=== PATIENT | female | born 1980 | race Two or more races ===

== ENCOUNTER 2017-08-31 06:32 | Outpatient (CLI) | payer OTHER ==
[~2017-08-31 06:32] MED LIST: ALLEGRA ALLERG180 MG PO; B12 5,000 MCG1 EACH SL; CALCIUM CARBON500 MG PO; CYTOMEL25 MCG PO; LASIX40 MG PO; MEDROL4 MG PO; NABUMETONE500 MG PO; NIFE60TA3 PO; OSTERA TABLET1 EACH PO; PERCOCET 5/3251 TAB PO; PROCARDIA90 MG/BLIS PO; SYNTHROID150 MCG PO; TORADOL10 MG PO; TYLENOL325 MG PO; VOLTAREM 50 MG PO; ZITHROMAX200 MG PO; [UNRECOGNIZED DRUG - CODE] PO
== END 2017-08-31 06:42 | disposition home or self-care (01) ==
LOC: LAB 06:32
DX: C73 Malignant neoplasm of thyroid gland (principal); E89.0 Postprocedural hypothyroidism

== ENCOUNTER 2017-09-28 14:25 | Emergency (ER) | payer OTHER ==
[~2017-09-28] VITALS: Ht 167.6 cm; Wt 113.4 kg
== END 2017-09-28 20:51 | disposition home or self-care (01) ==
LOC: ER 14:25
DX: J45.998 Other asthma (principal)

== ENCOUNTER 2017-11-27 07:19 | Outpatient (CLI) | payer OTHER | END 2017-11-27 07:54 | disposition home or self-care (01) | LOC: LAB 07:19 | DX: D64.9 Anemia, unspecified (principal); E11.9 Type 2 diabetes mellitus without complications; E78.2 Mixed hyperlipidemia; I10 Essential (primary) hypertension; E03.8 Other specified hypothyroidism ==

== ENCOUNTER → 2017-11-27 | Outpatient (CLI) | payer OTHER | END | disposition home or self-care (01) | LOC: TOM 08:45 | DX: R91.8 Other nonspecific abnormal finding of lung field (principal); Z85.850 Personal history of malignant neoplasm of thyroid ==

== ENCOUNTER 2017-12-13 07:42 | Emergency (ER) | payer OTHER ==
[~2017-12-13] VITALS: Ht 167.6 cm; Wt 105.7 kg
== END 2017-12-13 14:20 | disposition home or self-care (01) ==
LOC: ER 07:42
DX: J04.10 Acute tracheitis without obstruction (principal)

== ENCOUNTER → 2018-04-28 06:24 | Outpatient (CLI) | payer OTHER | END | disposition home or self-care (01) | LOC: LAB 06:24 | DX: C73 Malignant neoplasm of thyroid gland (principal); E89.0 Postprocedural hypothyroidism ==

== ENCOUNTER 2018-09-10 06:36 | Outpatient (CLI) | payer OTHER | END 2018-09-10 06:45 | disposition home or self-care (01) | LOC: LAB 06:36 | DX: C73 Malignant neoplasm of thyroid gland (principal); E89.0 Postprocedural hypothyroidism ==

== ENCOUNTER 2019-02-10 07:24 | Outpatient (CLI) | payer OTHER | END 2019-02-12 08:52 | disposition home or self-care (01) | LOC: TOM 07:24 | DX: C73 Malignant neoplasm of thyroid gland (principal) ==

== ENCOUNTER 2019-02-17 15:30 | Emergency (ER) | payer OTHER ==
[~2019-02-17] VITALS: Ht 165.1 cm; Wt 117.9 kg
[2019-02-17] MEDS ORDERED: KETO10TA2 PO (17:52)
[2019-02-17] MEDS ORDERED: ORPHENADRINE C100 MG PO (17:52)
[2019-02-17] MEDS ORDERED: FLONASE ALLERG9.9 ML NASAL (17:52)
[2019-02-17] MEDS ORDERED: CYCLOBENZAPRINE10 MG PO (17:52)
== END 2019-02-17 19:04 | disposition home or self-care (01) ==
LOC: ER 15:30
DX: M62.830 Muscle spasm of back (principal)

== ENCOUNTER 2019-03-02 07:02 | Outpatient (CLI) | payer OTHER ==
[~2019-03-02 07:02] MED LIST changes: +CYCLOBENZAPRINE10 MG PO; +FLONASE ALLERG9.9 ML NASAL; +KETO10TA2 PO; +ORPHENADRINE C100 MG PO
== END 2019-03-02 07:21 | disposition home or self-care (01) ==
LOC: LAB 07:02
DX: D64.89 Other specified anemias (principal); E11.9 Type 2 diabetes mellitus without complications; E78.2 Mixed hyperlipidemia; I10 Essential (primary) hypertension; E03.8 Other specified hypothyroidism

== ENCOUNTER 2019-05-09 06:43 | Outpatient (CLI) | payer OTHER | END 2019-05-09 15:00 | disposition home or self-care (01) | LOC: LAB 06:43 | DX: C73 Malignant neoplasm of thyroid gland (principal); E89.0 Postprocedural hypothyroidism ==

== ENCOUNTER 2019-06-01 07:16 | Outpatient (CLI) | payer OTHER ==
[~2019-06-01] VITALS: Ht 152.4 cm; Wt 120.2 kg
== END 2019-06-01 08:25 | disposition home or self-care (01) ==
LOC: OFIC 805 07:16
DX: C73 Malignant neoplasm of thyroid gland (principal); L30.8 Other specified dermatitis; J31.0 Chronic rhinitis; R21 Rash and other nonspecific skin eruption

== ENCOUNTER 2019-10-03 06:40 | Outpatient (CLI) | payer OTHER | END 2019-10-03 07:13 | disposition home or self-care (01) | LOC: LAB 06:40 | DX: D64.89 Other specified anemias (principal); E11.9 Type 2 diabetes mellitus without complications; E78.2 Mixed hyperlipidemia; E03.8 Other specified hypothyroidism; I10 Essential (primary) hypertension ==

== ENCOUNTER 2019-11-22 06:47 | Outpatient (CLI) | payer OTHER | END 2019-11-22 15:00 | disposition home or self-care (01) | LOC: LAB 06:47 | DX: C73 Malignant neoplasm of thyroid gland (principal); E89.0 Postprocedural hypothyroidism ==

== ENCOUNTER 2019-11-22 07:21 | Emergency (ER) | payer OTHER ==
[~2019-11-22] VITALS: Ht 167.6 cm; Wt 119.3 kg
== END 2019-11-22 12:10 | disposition home or self-care (01) ==
LOC: ER 07:21
DX: J45.998 Other asthma (principal); H66.92 Otitis media, unspecified, left ear

== ENCOUNTER 2020-01-16 06:14 | Outpatient (CLI) | payer OTHER | END 2020-01-16 06:23 | disposition home or self-care (01) | LOC: LAB 06:14 | PROVIDERS: ATTEND Internal Medicine Sports Medicine | DX: C73 Malignant neoplasm of thyroid gland (principal); E89.0 Postprocedural hypothyroidism ==

== ENCOUNTER 2020-01-16 07:13 | Outpatient (CLI) | payer OTHER | END 2020-01-16 07:25 | disposition home or self-care (01) | LOC: TOM 07:13 | PROVIDERS: ATTEND Internal Medicine Sports Medicine | DX: C73 Malignant neoplasm of thyroid gland (principal) ==

== ENCOUNTER → 2020-05-04 06:24 | Outpatient (CLI) | payer OTHER | END | disposition home or self-care (01) | LOC: LAB 06:24 | PROVIDERS: ATTEND Internal Medicine Sports Medicine | DX: C73 Malignant neoplasm of thyroid gland (principal); E89.0 Postprocedural hypothyroidism ==

== ENCOUNTER 2020-10-05 06:40 | Outpatient (CLI) | payer OTHER | END 2020-10-05 06:48 | disposition home or self-care (01) | LOC: LAB 06:40 | PROVIDERS: ATTEND Internal Medicine Sports Medicine | DX: D64.89 Other specified anemias (principal); E11.9 Type 2 diabetes mellitus without complications; E78.2 Mixed hyperlipidemia; I10 Essential (primary) hypertension; E03.8 Other specified hypothyroidism ==

== ENCOUNTER → 2021-02-04 06:20 | Outpatient (CLI) | payer OTHER | END | disposition home or self-care (01) | LOC: LAB 06:20 | PROVIDERS: ATTEND Internal Medicine Sports Medicine | DX: C73 Malignant neoplasm of thyroid gland (principal); E89.0 Postprocedural hypothyroidism; D50.8 Other iron deficiency anemias; E55.9 Vitamin D deficiency, unspecified; D55.8 Other anemias due to enzyme disorders ==

== ENCOUNTER 2021-02-11 08:00 | Outpatient (CLI) | payer OTHER | END 2021-02-11 08:30 | disposition home or self-care (01) | LOC: PPH VACUNA 08:00 | DX: Z23 Encounter for immunization (principal) ==

== ENCOUNTER 2021-03-04 08:00 | Outpatient (CLI) | payer OTHER | END 2021-03-04 08:30 | disposition home or self-care (01) | LOC: PPH VACUNA 08:00 | DX: Z23 Encounter for immunization (principal) ==

== ENCOUNTER 2021-05-06 06:17 | Outpatient (CLI) | payer OTHER | END 2021-05-06 06:18 | disposition home or self-care (01) | LOC: LAB 06:17 | PROVIDERS: ATTEND Internal Medicine Sports Medicine | DX: D64.89 Other specified anemias (principal); E11.9 Type 2 diabetes mellitus without complications; E78.2 Mixed hyperlipidemia; I10 Essential (primary) hypertension; E03.8 Other specified hypothyroidism; E55.9 Vitamin D deficiency, unspecified ==

== ENCOUNTER 2021-06-12 06:36 | Outpatient (CLI) | payer OTHER | END 2021-06-12 08:27 | disposition home or self-care (01) | LOC: LAB 06:36 | DX: M94.0 Chondrocostal junction syndrome [Tietze] (principal); S76.911A Strain of unspecified muscles, fascia and tendons at thigh level, right thigh, initial encounter; R60.0 Localized edema ==

== ENCOUNTER 2021-09-10 08:00 | Outpatient (CLI) | payer OTHER | END 2021-09-10 08:30 | disposition home or self-care (01) | LOC: PPH VACUNA 08:00 | PROVIDERS: ATTEND Emergency Medicine Pediatric Emergency Medicine | DX: Z23 Encounter for immunization (principal) ==

== ENCOUNTER 2021-10-28 06:35 | Outpatient (CLI) | payer OTHER | END 2021-10-28 06:36 | disposition home or self-care (01) | LOC: LAB 06:35 | PROVIDERS: ATTEND Internal Medicine Sports Medicine | DX: D64.9 Anemia, unspecified (principal); E11.9 Type 2 diabetes mellitus without complications; E78.2 Mixed hyperlipidemia; I10 Essential (primary) hypertension; E03.8 Other specified hypothyroidism ==

== ENCOUNTER 2022-02-10 06:36 | Outpatient (CLI) | payer OTHER | END 2022-02-10 06:37 | disposition home or self-care (01) | LOC: LAB 06:36 | PROVIDERS: ATTEND Internal Medicine Sports Medicine | DX: C73 Malignant neoplasm of thyroid gland (principal); E89.0 Postprocedural hypothyroidism; E03.8 Other specified hypothyroidism; D50.8 Other iron deficiency anemias ==

== ENCOUNTER 2022-03-24 06:41 | Outpatient (CLI) | payer OTHER | END 2022-03-24 06:49 | disposition home or self-care (01) | LOC: LAB 06:41 | PROVIDERS: ATTEND Internal Medicine Sports Medicine | DX: D64.9 Anemia, unspecified (principal); E11.9 Type 2 diabetes mellitus without complications; E78.2 Mixed hyperlipidemia; I10 Essential (primary) hypertension; E03.8 Other specified hypothyroidism ==

== ENCOUNTER 2022-07-08 06:52 | Inpatient (IN) | payer OTHER ==
[~2022-07-08] VITALS: Ht 167.6 cm; Wt 124.3 kg
[2022-07-08] MEDS ORDERED: SYNTHROID175 MCG PO (07:14)
--- NOTE | 2022-07-08 07:15 | NUR ---
SE RECIBE PTE ALERTA Y ORIENTADA X3. PTE REFIERE TENER DOLOR ABDOMINAL EN LADO IZQ PERSISTENTE SE EVALUA S/V Y SE UBICA .
--- NOTE | 2022-07-08 08:27 | NUR ---
LATASHA Amado.WONG ORIENTA PTE SOBRE EL TRATAMIENTO ORDENADO POR LA GOVEA PTE ALERTA Y ORIENTADO POR 3 RN WONG, REALIZA MUESTRAS DE LABORATORIO Y NOTIFICA ESTUDIO DE CT, PTE SE MANTIENE EN OBSERVACION Y BAJO TRATAMIENTO.
== END 2022-07-10 16:34 | disposition home or self-care (01) | DRG 392 ==
LOC: ER 06:52 → SEC-K 19:19 → O/R 07-10 08:24 → SEC-K 07-10 08:35 → MEDI 07-10 10:34
PROVIDERS: ADMIT Internal Medicine; ATTEND Internal Medicine
PROC: BW21ZZZ Computerized Tomography (CT Scan) of Abdomen and Pelvis (ICD-10-PCS; principal; 2022-07-08)
DX: K57.32 Diverticulitis of large intestine without perforation or abscess without bleeding (principal); N39.0 Urinary tract infection, site not specified; Z20.822 Contact with and (suspected) exposure to COVID-19; E03.9 Hypothyroidism, unspecified; J45.998 Other asthma

== ENCOUNTER 2023-01-09 06:27 | Outpatient (CLI) | payer OTHER ==
[~2023-01-09 06:27] MED LIST changes: +SYNTHROID175 MCG PO
== END 2023-01-09 06:33 | disposition home or self-care (01) ==
LOC: LAB 06:27
PROVIDERS: ATTEND Internal Medicine Sports Medicine
DX: D64.9 Anemia, unspecified (principal); I10 Essential (primary) hypertension; E11.9 Type 2 diabetes mellitus without complications; E78.2 Mixed hyperlipidemia; E03.8 Other specified hypothyroidism

== ENCOUNTER 2023-01-29 06:08 | Outpatient (CLI) | payer OTHER | END 2023-01-29 06:10 | disposition home or self-care (01) | LOC: LAB 06:08 | PROVIDERS: ATTEND Internal Medicine Sports Medicine | DX: L93.0 Discoid lupus erythematosus (principal) ==

== ENCOUNTER 2023-04-14 06:53 | Outpatient (CLI) | payer OTHER | END 2023-04-14 06:54 | disposition home or self-care (01) | LOC: LAB 06:53 | PROVIDERS: ATTEND Internal Medicine Sports Medicine | DX: C73 Malignant neoplasm of thyroid gland (principal); E08.9 Diabetes mellitus due to underlying condition without complications ==

== ENCOUNTER → 2023-06-22 06:39 | Outpatient (CLI) | payer OTHER ==
[2023-06-22 08:29] LABS: CREATININE SERUM 0.65 mg/dL (0.55-1.02)
== END | disposition home or self-care (01) ==
LOC: LAB 06:39
PROVIDERS: ATTEND Otolaryngology
DX: I10 Essential (primary) hypertension (principal)

== ENCOUNTER → 2023-08-14 06:49 | Outpatient (CLI) | payer OTHER ==
[2023-08-14 07:41] LABS: HEMATOCRIT 34.1 % (36.0-45.00); HEMOGLOBIN 10.6 g/dL (12.0-15.00); MEAN CORPUSCULAR HEMOGLOBIN 20.5 pg (27.00-32.0); PLATELET COUNT 340 K/uL (150-450); RED BLOOD COUNT 5.16 M/uL (4.00-6.00)
[2023-08-14 08:01] LABS: PH,URINE 6.5 (5.0-8.0); URINE APPEARANCE Clear; URINE BILIRRUBIN Negative (NEGATIVE); URINE BLOOD Negative; URINE COLOR Yellow; URINE GLUCOSE Negative (NEGATIVE); URINE LEUKOCYTE Moderate; URINE NITRATE Negative; URINE PROTEIN Negative (NEGATIVE)
[2023-08-14 08:05] LABS: URINE BACTERIA 139.8 uL (0.0-1933); URINE EPITHELIAL CELLS 6.6 uL (0.0-38.8); URINE RBC 5.6 uL (0.0-20.8)
== END | disposition home or self-care (01) ==
LOC: LAB 06:49
PROVIDERS: ATTEND Internal Medicine Sports Medicine
DX: D64.9 Anemia, unspecified (principal); E11.9 Type 2 diabetes mellitus without complications; E78.2 Mixed hyperlipidemia; I10 Essential (primary) hypertension; E03.8 Other specified hypothyroidism

== ENCOUNTER 2023-09-22 06:53 | Outpatient (CLI) | payer OTHER ==
[2023-09-22 07:37] LABS: CREATININE SERUM 0.66 mg/dL (0.55-1.02)
== END 2023-09-22 06:54 | disposition home or self-care (01) ==
LOC: LAB 06:53
DX: N28.9 Disorder of kidney and ureter, unspecified (principal)

== ENCOUNTER → 2024-02-09 06:39 | Outpatient (CLI) | payer OTHER ==
[2024-02-09 07:19] LABS: PH,URINE 5.5 (5.0-8.0); URINE APPEARANCE Clear; URINE BILIRRUBIN Negative (NEGATIVE); URINE BLOOD Negative; URINE COLOR Yellow; URINE GLUCOSE Negative (NEGATIVE); URINE LEUKOCYTE Trace; URINE NITRATE Negative; URINE PROTEIN Negative (NEGATIVE)
[2024-02-09 07:22] LABS: URINE BACTERIA 434.7 uL (0.0-1933); URINE EPITHELIAL CELLS 13.2 uL (0.0-38.8); URINE RBC 11.6 uL (0.0-20.8); URINE WBC 27.3 uL (0.0-23.2)
[2024-02-09 07:24] LABS: HEMATOCRIT 33.6 % (36.0-45.00); HEMOGLOBIN 10.7 g/dL (12.0-15.00); MEAN CORPUSCULAR HEMOGLOBIN 22.2 pg (27.00-32.0); MEAN CORPUSCULAR HGB CONC 31.8 g/dl (32.0-36.0); PLATELET COUNT 401 K/uL (150-450); RED BLOOD COUNT 4.82 M/uL (4.00-6.00); RED CELL DISTRIBUTION WIDTH 17.3 % (11.5-14.5)
[2024-02-09 07:26] LABS: MEAN CELL VOLUME 69.7 fL (80.00-100.00)
[2024-02-09 08:24] LABS: ALBUMIN 3.8 gm/dL (3.4-5.0); BILIRUBIN TOTAL 0.65 mg/dL (0.3-1.2); CALCIUM 8.8 mg/dL (8.5-10.1); CHOL HDL RATIO 3.8 (0-5.0); CREATININE SERUM 0.66 mg/dL (0.55-1.02); GFR 98.21; GLOBULINA 3.2 G/DL (2.4-3.5); POTASSIUM 4.25 mEq/L (3.5-5.1); T4 FREE 1.01 NG/ML (0.76-1.46)
[2024-02-09 08:33] LABS: FERRITIN 3.5 NG/ML (8-252)
[2024-02-09 08:34] LABS: TSH 14.3 uIU/mL (0.358-3.74)
== END | disposition home or self-care (01) ==
LOC: LAB 06:39
PROVIDERS: ATTEND Internal Medicine Sports Medicine
DX: E11.9 Type 2 diabetes mellitus without complications (principal); E78.2 Mixed hyperlipidemia; E03.8 Other specified hypothyroidism